=== PATIENT | male | born 1950 | race Caucasian/White ===

== ENCOUNTER 2017-03-25 05:09 | Observation (INO) ==
--- NOTE | 2017-03-25 05:40 | Emergency Department Note ---
Disposition Clinical Impression: Thoracic back pain Qualifiers: Chronicity: acute Back pain laterality: midline Qualified Code(s): M54.6 - Pain in thoracic spine Disposition: Still a Patient Referrals: Geronimo Grimm MD [Primary Care Provider] - Forms: ED Satisfaction Letter Time of Disposition: 05:48 General Adult HPI - General Chief complaint: ED Back Pain/Injury Stated complaint: back pain Time Seen by Provider: 03/25/17 05:25 Source: patient Nursing Notes Reviewed: Yes Vital Signs Reviewed: Yes - History of Present Illness HPI Narrative: 66-year-old male diabetic nonsmoker complains of mid scapular pain. He states he has had this for the past 3 days, is worse when he lies down at night, but it was worse when he woke up this morning which prompted his visit to the emergency department. He describes it as a dull ache and rates it 5 out of 10. He took some [id number] back and body medicine prior to arrival which states it "eased up a little". Other than that nothing makes it better and he does not feel that anything makes it worse. He denies any shortness of breath, or any worsening with exertion. He tells me he has no history of chronic back pain, denies any injury or trauma. He denies any neck, extremity, abdominal pain, recent illness, cough, fever, near syncopal symptoms, nausea, weakness, vision changes. Pain Scale: 6 - Related Data Home Medications Medication Instructions Recorded Confirmed Aspirin Enteric Coated [Aspirin EC] 81 mg PO DAILY 10/19/14 01/11/15 Cholecalciferol (Vitamin D3) 5,000 unit PO BID 10/19/14 01/11/15 [Vitamin D3] Cyanocobalamin/Folic Acid [B-12 1,000 mcg PO DAILY 10/19/14 01/11/15 1,000 Mcg Sub Tablet] Fenofibric Acid [Fibricor] 135 mg PO DAILY 10/19/14 01/11/15 Folic Acid 800 mcg PO DAILY 10/19/14 01/11/15 Insulin Glargine,Hum.rec.anlog 28 unit SQ DAILY 10/19/14 01/11/15 [Lantus Solostar] Lisinopril/Hydrochlorothiazide 1 each PO DAILY 10/19/14 01/11/15 [Zestoretic 20-12.5 mg Tablet] Magnesium Oxide [Magnesium] 400 mg PO QID 10/19/14 01/11/15 Metformin HCl [Fortamet] 1,000 mg PO BID 10/19/14 01/11/15 Potassium Citrate [Urocit-K] 100 meq PO BID 10/19/14 01/11/15 Rosuvastatin [Crestor] 40 mg PO DAILY 10/19/14 01/11/15 Previous Rx's Medication Instructions Recorded Budesonide/Formoterol 160/4.5 1 puff IH BIDR #1 hfa.aer.ad 01/11/15 [Symbicort] GuaiFENesin/Codeine [Robitussin 5 ml PO Q6HR #100 liquid 01/11/15 w/Codeine] Nitrofurantoin (BID) [Macrobid] 100 mg PO BID #14 capsule 01/11/15 Promethazine/Dextromethorphan 5 ml PO Q6H PRN #118 ml 03/11/15 [Promethazine-Dm Syrup] Sulfamethoxazole/Trimeth DS 1 each PO BID #20 tablet 03/11/15 [Bactrim DS] predniSONE [PredniSONE] 10 mg PO BIDWM #20 tablet 03/11/15 Allergies Allergy/AdvReac Type Severity Reaction Status Date / Time No Known Allergies Allergy Verified 10/19/14 10:36 All systems ED: reviewed and negative except as stated. Review of Systems: As Per HPI Constitutional: Denies: fever, chills, weakness Eyes: Denies: vision change ENT ED: Denies: throat pain Cardiovascular: Reports: as per HPI. Denies: palpitations, dyspnea on exertion , orthopnea Respiratory: Denies: cough, dyspnea, wheezes, hemoptysis, stridor, sputum production Gastrointestinal: Denies: abdominal pain, nausea, vomiting Genitourinary: Denies: dysuria Musculoskeletal: Reports: as per HPI. Denies: joint swelling Integumentary: Denies: rash Neurological: Denies: headache, weakness, numbness, paresthesias Endocrine: Denies: fatigue Hematological/Lymphatic: Denies: easy bleeding Allergic/Immunologic: Denies: facial swelling Past Medical History - Past Medical History Medical history: Reports: diabetes, hypertension, other - Social History Smoking Status: Never smoker Smokeless Tobacco Status: No Alcohol use: Reports: none Drug use: Reports: none Physical Exam - General Limitations: no limitations General appearance: alert, in no apparent distress - Head Head exam: normocephalic - Eye Eye exam: Present: EOMI. Absent: conjunctival injection - ENT ENT exam: mucous membranes moist - Neck Neck exam: Present: normal inspection, full ROM. Absent: tenderness - Chest Chest inspection: Present: symmetric chest wall rise - Respiratory Respiratory exam: Present: normal lung sounds bilaterally. Absent: respiratory distress - Cardiovascular Cardiovascular exam: Present: regular rate, normal rhythm - Abdominal Exam Abdominal exam: Present: soft, Non-Tender - Extremities Exam Extremities exam: Present: normal inspection, full ROM, normal capillary refill - Back Exam Back exam: Present: normal inspection, tenderness (mid scapular). Absent: CVA tenderness (R), CVA tenderness (L) - Neurological Exam Neurological exam: Present: alert, oriented X3 - Psychiatric Psychiatric exam: Present: normal affect, normal mood - Skin Skin exam: Present: warm, dry, intact, normal color. Absent: rash, cyanosis, diaphoresis Course Course Narrative: Patient is a 66-year-old male diabetic that he relates to exam room from home by private vehicle with complaint of dull mid scapular pain has been intermittent for the past 3 days, but worse this morning. Patient seen upon his arrival to exam room. He is in no acute distress. Does not look toxic. He appears comfortable. Slightly hypertensive, but patient mentions he has not taken his morning blood pressure medications. Normal distal pulses. Lungs clear to auscultation. Heart regular rhythm, with a rate of 60. EKG sinus bradycardia with no ischemic changes. Aspirin of the history includes diabetes, hypertension. She denies any history of heart disease. Family history of heart disease. Patient declines analgesics. Blood work and chest x-ray ordered. - Reevaluation(s) Reevaluation #1: Due to change, care of this patient will be transferred over to day shift provider Ayala Gordon PA-C. Pt discussed with Ayala. Please see her documentation for details. Time: 05:50 Vital Signs Temperature 97.5 F L 03/25/17 05:09 Pulse Rate 88 03/25/17 05:09 Respiratory Rate 16 03/25/17 05:09 Blood Pressure 163/88 03/25/17 05:09 O2 Sat by Pulse Oximetry 97 02/03/18 05:09 Temperature 97.5 F L 03/25/17 05:09 Pulse Rate 60 03/25/17 05:29 Respiratory Rate 18 03/25/17 05:29 Blood Pressure 126/104 03/25/17 05:29 O2 Sat by Pulse Oximetry 97 03/25/17 05:29 Oxygen Delivery Oxygen Delivery Room Air Medical Decision Making - Lab Data Result diagrams: 03/25/17 05:50 Lab Results 03/25/17 03/25/17 Range/Units 05:50 05:56 WBC 6.4 (4.3-11.1) K/mcL RBC 5.36 (4.19-5.50) M/mcL Hgb 15.2 (12.9-16.9) g/dL Hct 47.2 (37.5-50.1) % MCV 88.1 (83.0-100.0) fL MCH 28.4 (28.0-33.3) pg MCHC 32.2 (31.6-35.5) g/dL RDW 13.9 (11.5-14.5) % Plt Count 272 (140-400) K/mcL MPV 10.5 (9.4-12.4) fL Immature Gran % 0.6 (0-4) % Seg Neutrophils % 49.3 % Lymphocytes % 36.9 % Monocytes % 9.7 % Eosinophils % 1.9 % Basophils % 1.6 % Neutrophils # 3.2 (1.6-8.9) K/mcL Lymphocytes # 2.4 (0.6-4.6) K/mcL Monocytes # 0.6 (0.0-1.3) K/mcL Eosinophils # 0.1 (0.0-0.6) K/mcL Basophils # 0.1 (0.0-0.2) K/mcL Urine Color Yellow (Yellow) Urine Clarity Clear (Clear) Urine pH 6.0 (5.0-8.0) pH Units Ur Specific [place] 1.019 (1.010-1.025) Urine Protein Negative (Neg-Trace) mg/dL Urine Glucose (UA) Normal (Normal) mg/dL Urine Ketones Negative (Negative) mg/dL Urine Blood Negative (Negative) Urine Nitrite Negative (Negative) Urine Bilirubin Negative (Negative) Urine Urobilinogen Normal (Normal) mg/dL Ur Leukocyte Esterase Negative (Negative) Ur Culture Indicated? NO (NO) - EKG Data EKG #1 EKG attestation: Yes I reviewed and interpreted this EKG. EKG shows normal: sinus rhythm Rate: bradycardia Interpretation: no acute changes S.B.A.R. - S.B.A.R. Situation: Demographics Background: Presenting Complaint Assessment: Vital Signs Recommendation: Recommendation based on pending studies, treatments, or consults S.B.A.R. Report Given to: CARITO Martinez S.B.A.RTerence Repor Time: 06:05
[2017-03-25 06:01] LABS: Basophils # 0.1 K/mcL (0.0-0.2); Basophils % 1.6 %; Eosinophils # 0.1 K/mcL (0.0-0.6); Eosinophils % 1.9 %; Hematocrit 47.2 % (37.5-50.1); Hemoglobin 15.2 g/dL (12.9-16.9); Immature Granulocytes % 0.6 % (0-4); Lymphocytes # 2.4 K/mcL (0.6-4.6); Lymphocytes % 36.9 %; Mean Corpuscular HGB Conc 32.2 g/dL (31.6-35.5); Mean Corpuscular Hemoglobin 28.4 pg (28.0-33.3); Mean Corpuscular Volume 88.1 fL (83.0-100.0); Mean Platelet Volume 10.5 fL (9.4-12.4); Monocytes # 0.6 K/mcL (0.0-1.3); Monocytes % 9.7 %; Neutrophils # 3.2 K/mcL (1.6-8.9); Platelet Count 272 K/mcL (140-400); Red Blood Count 5.36 M/mcL (4.19-5.50); Red Cell Distribution Width 13.9 % (11.5-14.5); Segmented Neutrophils % 49.3 %
[2017-03-25 06:10] LABS: Bilirubin,Urine Negative (Negative); Blood,Urine Negative (Negative); Clarity,Urine Clear (Clear); Color,Urine Yellow (Yellow); Glucose,Urine (UA) Normal (Normal); Ketones,Urine Negative (Negative); Leukocyte Esterase,Urine Negative (Negative); Nitrite,Urine Negative (Negative); Protein,Urine Negative (Neg-Trace); Specific Gravity,Urine 1.019 (1.010-1.025); Urobilinogen,Urine Normal (Normal)
[2017-03-25 06:19] LABS: BUN/Creatinine Ratio 20 (6-26); Blood Urea Nitrogen 26 mg/dL (8-23); Calcium 8.9 mg/dL (8.6-10.3); Carbon Dioxide 29 mEq/L (23-29); Chloride 106 mEq/L (98-107); Glucose 107 mg/dL (70-105); Osmolality,Calculated 295 (280-300); Potassium 4.1 mEq/L (3.5-5.1); Sodium 140 mEq/L (136-145); eGFR For African Americans > 60 (> 60); eGFR For Non-African Americans 56 (> 60)
[2017-03-25] MEDS ORDERED: Aspirin 81 MG TAB.CHEW PO ONE (06:44)
--- NOTE | 2017-03-25 06:44 | Emergency Department Note ---
Disposition Clinical Impression: Anginal equivalent Back pain Qualifiers: Back pain location: thoracic back pain Chronicity: acute Disposition: Admitted As Inpatient Condition: Fair Time of Disposition: 07:05 General Adult HPI - General Chief complaint: ED Back Pain/Injury Stated complaint: back pain Time Seen by Provider: 03/25/17 05:25 Source: patient Limitations: no limitations - History of Present Illness Pain Scale: 5 - Related Data Home Medications Medication Instructions Recorded Confirmed Aspirin Enteric Coated [Aspirin EC] 81 mg PO DAILY 10/19/14 01/11/15 Cholecalciferol (Vitamin D3) 5,000 unit PO BID 10/19/14 01/11/15 [Vitamin D3] Cyanocobalamin/Folic Acid [B-12 1,000 mcg PO DAILY 10/19/14 01/11/15 1,000 Mcg Sub Tablet] Fenofibric Acid [Fibricor] 135 mg PO DAILY 10/19/14 01/11/15 Folic Acid 800 mcg PO DAILY 10/19/14 01/11/15 Insulin Glargine,Hum.rec.anlog 28 unit SQ DAILY 10/19/14 01/11/15 [Lantus Solostar] Lisinopril/Hydrochlorothiazide 1 each PO DAILY 10/19/14 01/11/15 [Zestoretic 20-12.5 mg Tablet] Magnesium Oxide [Magnesium] 400 mg PO QID 10/19/14 01/11/15 Metformin HCl [Fortamet] 1,000 mg PO BID 10/19/14 01/11/15 Potassium Citrate [Urocit-K] 100 meq PO BID 10/19/14 01/11/15 Rosuvastatin [Crestor] 40 mg PO DAILY 10/19/14 01/11/15 Previous Rx's Medication Instructions Recorded Budesonide/Formoterol 160/4.5 1 puff IH BIDR #1 hfa.aer.ad 01/11/15 [Symbicort] GuaiFENesin/Codeine [Robitussin 5 ml PO Q6HR #100 liquid 01/11/15 w/Codeine] Nitrofurantoin (BID) [Macrobid] 100 mg PO BID #14 capsule 01/11/15 Promethazine/Dextromethorphan 5 ml PO Q6H PRN #118 ml 03/11/15 [Promethazine-Dm Syrup] Sulfamethoxazole/Trimeth DS 1 each PO BID #20 tablet 03/11/15 [Bactrim DS] predniSONE [PredniSONE] 10 mg PO BIDWM #20 tablet 03/11/15 Allergies Allergy/AdvReac Type Severity Reaction Status Date / Time No Known Allergies Allergy Verified 10/19/14 10:36 Constitutional: Denies: fever, chills, weakness Eyes: Denies: vision change ENT ED: Denies: throat pain Cardiovascular: Reports: as per HPI. Denies: palpitations, dyspnea on exertion , orthopnea Respiratory: Denies: cough, dyspnea, wheezes, hemoptysis, stridor, sputum production Gastrointestinal: Denies: abdominal pain, nausea, vomiting Genitourinary: Denies: dysuria Musculoskeletal: Reports: as per HPI. Denies: joint swelling Integumentary: Denies: rash Neurological: Denies: headache, weakness, numbness, paresthesias Endocrine: Denies: fatigue Hematological/Lymphatic: Denies: easy bleeding Allergic/Immunologic: Denies: facial swelling Past Medical History - Past Medical History Medical history: Reports: diabetes, hypertension, other - Social History Smoking Status: Never smoker Smokeless Tobacco Status: No Alcohol use: Reports: none Drug use: Reports: none Physical Exam - General Limitations: no limitations General appearance: alert, in no apparent distress Course Course Narrative: Patient was originally seen by Garth MADDEN. SEE Garth's note>>>>>>>>>>>>>>>>>>>>>>> >>>> Patient is a 66 old male with a past medical history of hypertension and diabetes that presents the ED with chief complaint pain between shoulder blades with associated nausea and shortness of breath. Patient describes the pain as dull. States it is worse with ambulation. Patient states "I want to make sure it is not my heart, that is what I am concerned about." He denies any chest pain. He denies any fever, abdominal pain, diarrhea, vomiting, diaphoresis, weakness or any other symptoms/complaints. Patient denies ever having a stress or heart cath. Denies any history of aortic or abdominal aneurysm. No hx of DVT or PE EKG with sinus bradycardia, which was reviewed by Dr. Phelan and Garth MADDEN. Labs had also resulted which are within normal limits. Troponin negative. Chest x-ray was also resulted which showed no acute cardiopulmonary abnormalities. Patient denied any pain or nausea medication prior to me arriving to the ED I ordered patient an aspirin at 6:44 AM. When I evaluated patient in the room 6:30 AM patient was resting comfortably and caught. Vital stable. Head normocephalic. Eyes normal inspection. ENT within normal limits. Neck supple, full range of motion, nontender. No signs of meningeal irritation. Heart RRR. Lungs CTAB. No wheezing, stridor, retractions or any signs of respiratory distress/compromise. Abdomen soft, nontender. Normal bowel sounds. Back normal inspection, nontender. Extremities within normal limits. No tibial edema. Neuro no focal neurological deficits noted on exam. Heart score 4, moderate risk Plan to discuss case with Dr. Mae for possible admission for atypical ACS rule out. Hospitalist paged 07:05 AM Discuss[address] case [address] Dr. Barry. he accepted pt no other request at this time. Pt stable to be transferred to the floor. Vital Signs Temperature 97.5 F L 03/25/17 05:09 Pulse Rate 88 03/25/17 05:09 Respiratory Rate 16 03/25/17 05:09 Blood Pressure 163/88 03/25/17 05:09 O2 Sat by Pulse Oximetry 97 03/25/17 05:09 Temperature 97.5 F L 03/25/17 05:09 Pulse Rate 60 03/25/17 06:56 Respiratory Rate 18 03/25/17 06:31 Blood Pressure 133/87 03/25/17 06:56 O2 Sat by Pulse Oximetry 95 03/25/17 06:56 Oxygen Delivery Oxygen Delivery Room Air Medical Decision Making - Medical Records Medical records reviewed: Yes I reviewed the patient's medical records. - Lab Data Lab results reviewed: Yes I reviewed the patient's lab results. Result diagrams: 03/25/17 05:50 03/25/17 05:50 Lab Results 03/25/17 03/25/17 03/25/17 Range/Units 05:50 05:50 05:50 WBC 6.4 (4.3-11.1) K/mcL RBC 5.36 (4.19-5.50) M/mcL Hgb 15.2 (12.9-16.9) g/dL Hct 47.2 (37.5-50.1) % MCV 88.1 (83.0-100.0) fL MCH 28.4 (28.0-33.3) pg MCHC 32.2 (31.6-35.5) g/dL RDW 13.9 (11.5-14.5) % Plt Count 272 (140-400) K/mcL MPV 10.5 (9.4-12.4) fL Immature Gran % 0.6 (0-4) % Seg Neutrophils % 49.3 % Lymphocytes % 36.9 % Monocytes % 9.7 % Eosinophils % 1.9 % Basophils % 1.6 % Neutrophils # 3.2 (1.6-8.9) K/mcL Lymphocytes # 2.4 (0.6-4.6) K/mcL Monocytes # 0.6 (0.0-1.3) K/mcL Eosinophils # 0.1 (0.0-0.6) K/mcL Basophils # 0.1 (0.0-0.2) K/mcL Sodium 140 (136-145) mEq/L Potassium 4.1 (3.5-5.1) mEq/L Chloride 106 (98-107) mEq/L Carbon Dioxide 29 (23-29) mEq/L BUN 26 H (8-23) mg/dL Creatinine 1.29 (0.70-1.30) mg/dL Est GFR ( Amer) > 60 (> 60) Est GFR (Non-Af Amer) 56 L (> 60) BUN/Creatinine Ratio 20 (6-26) Glucose 107 H (70-105) mg/dL Calculated Osmolality 295 (280-300) Lactic Acid (0.5-2.2) mmol/L Calcium 8.9 (8.6-10.3) mg/dL Troponin I < 0.03 (< 0.04) ng/mL Urine Color (Yellow) Urine Clarity (Clear) Urine pH (5.0-8.0) pH Units Ur Specific [place] (1.010-1.025) Urine Protein (Neg-Trace) mg/dL Urine Glucose (UA) (Normal) mg/dL Urine Ketones (Negative) mg/dL Urine Blood (Negative) Urine Nitrite (Negative) Urine Bilirubin (Negative) Urine Urobilinogen (Normal) mg/dL Ur Leukocyte Esterase (Negative) Ur Culture Indicated? (NO) 02/03/18 02/03/18 Range/Units 05:50 05:56 WBC (4.3-11.1) K/mcL RBC (4.19-5.50) M/mcL Hgb (12.9-16.9) g/dL Hct (37.5-50.1) % MCV (83.0-100.0) fL MCH (28.0-33.3) pg MCHC (31.6-35.5) g/dL RDW (11.5-14.5) % Plt Count (140-400) K/mcL MPV (9.4-12.4) fL Immature Gran % (0-4) % Seg Neutrophils % % Lymphocytes % % Monocytes % % Eosinophils % % Basophils % % Neutrophils # (1.6-8.9) K/mcL Lymphocytes # (0.6-4.6) K/mcL Monocytes # (0.0-1.3) K/mcL Eosinophils # (0.0-0.6) K/mcL Basophils # (0.0-0.2) K/mcL Sodium (136-145) mEq/L Potassium (3.5-5.1) mEq/L Chloride (98-107) mEq/L Carbon Dioxide (23-29) mEq/L BUN (8-23) mg/dL Creatinine (0.70-1.30) mg/dL Est GFR ( Amer) (> 60) Est GFR (Non-Af Amer) (> 60) BUN/Creatinine Ratio (6-26) Glucose (70-105) mg/dL Calculated Osmolality (280-300) Lactic Acid 1.7 (0.5-2.2) mmol/L Calcium (8.6-10.3) mg/dL Troponin I (< 0.04) ng/mL Urine Color Yellow (Yellow) Urine Clarity Clear (Clear) Urine pH 6.0 (5.0-8.0) pH Units Ur Specific [place] 1.019 (1.010-1.025) Urine Protein Negative (Neg-Trace) mg/dL Urine Glucose (UA) Normal (Normal) mg/dL Urine Ketones Negative (Negative) mg/dL Urine Blood Negative (Negative) Urine Nitrite Negative (Negative) Urine Bilirubin Negative (Negative) Urine Urobilinogen Normal (Normal) mg/dL Ur Leukocyte Esterase Negative (Negative) Ur Culture Indicated? NO (NO) - Radiology Data Radiology results reviewed: Yes I reviewed the patient's radiology results. Attestation Statement - Attestation Attestation: For this encounter, I have reviewed the DELIVERY PERSON or PA documentation, treatment plan, and medical decision making; and I have had face to face time with this patient. [id number] time provided Labs, ECG reviewed by me. Patient appears in no acute distress on exam
--- NOTE | 2017-03-25 09:10 | Internal Med History&Physical ---
Date of Encounter: 03/25/17 Time of Encounter: 09:07 Assessment and Plan (1) SOB (shortness of breath) Current visit: Yes Status: Acute Exertional shortness of breath and fatigue consult for angina equivalent (2) Diabetes 1.5, managed as type 2 Current visit: Yes Status: Acute Chronic resume home medication and sliding scale (3) HTN (hypertension) Current visit: Yes Status: Chronic Chronic and well controlled Qualifiers: Hypertension type: essential hypertension Qualified Code(s): I10 - Essential (primary) hypertension (4) Anginal equivalent Current visit: Yes Status: Acute Patient with pain in the shoulder blade exertional shortness of breath possible angina equivalent need further evaluation with nuclear stress test and echo Internal Medicine - H&P: HPI Chief complaint: chest pain Admitted From: Emergency Dept Plans for Post Hospital Care: Home History of present illness: Mr. Westbrook is a 66 year old male Patient with history of hypertension, diabetes, high cholesterol, strong family history of CAD both brother has had myocardial infarction older brother has had CABG twice patient presented emergency room with the pain and upper back in between the shoulder blades and he was concerned wanted to make sure it was not his heart has some nausea and some shortness of breath patient and also reports he has been having exertional shortness of breath and also some exertional fatigue. No chest pain per se EKG is unremarkable troponin is normal p atient is being admitted for further Evaluation. Past Med Surg Social Fam HX - Past Medical History Medical history: diabetes, hypertension, other - Social History Smoking Status: Never smoker Smokeless Tobacco Status: No Alcohol use: none Drug use: none Internal Medicine - H&P: Meds Aspirin Enteric Coated [Aspirin EC] 81 mg PO DAILY 10/19/14 [History] Cholecalciferol (Vitamin D3) [Vitamin D3] 5,000 unit PO BID 10/19/14 [History] Cyanocobalamin/Folic Acid [B-12 1,000 Mcg Sub Tablet] 1,000 mcg PO DAILY [History] Fenofibric Acid [Fibricor] 135 mg PO DAILY 10/19/14 [History] Folic Acid 800 mcg PO DAILY 10/19/14 [History] Insulin Glargine,Hum.rec.anlog [Lantus Solostar] 28 unit SQ DAILY 10/19/14 [ History] Lisinopril/Hydrochlorothiazide [Zestoretic 20-12.5 mg Tablet] 1 each PO DAILY [History] Magnesium Oxide [Magnesium] 400 mg PO QID 10/19/14 [History] Metformin HCl [Fortamet] 1,000 mg PO BID 10/19/14 [History] Potassium Citrate [Urocit-K] 100 meq PO BID 10/19/14 [History] Rosuvastatin [Crestor] 40 mg PO DAILY 10/19/14 [History] Budesonide/Formoterol 160/4.5 [Symbicort] 1 puff IH BIDR #1 hfa.aer.ad 01/11/15 [Rx] GuaiFENesin/Codeine [Robitussin w/Codeine] 5 ml PO Q6HR #100 liquid 01/11/15 [Rx ] Nitrofurantoin (BID) [Macrobid] 100 mg PO BID #14 capsule 01/11/15 [Rx] Promethazine/Dextromethorphan [Promethazine-Dm Syrup] 5 ml PO Q6H PRN #118 ml [Rx] Sulfamethoxazole/Trimeth DS [Bactrim DS] 1 each PO BID #20 tablet 03/11/15 [Rx] predniSONE [PredniSONE] 10 mg PO BIDWM #20 tablet 03/11/15 [Rx] 3 Allergy/AdvReac Type Severity Reaction Status Date / Time No Known Allergies Allergy Verified 10/19/14 10:36 All Systems PM: A 10-system review of systems was performed and is negative for pertinent findings except as documented above in the HPI. - Constitutional Constitutional: no chills, no fever(s), no night sweats - EENT Eyes: no change in vision, no discharge, no pain, no photophobia Ears: no ear discharge, no ear pain, no tinnitus Nose, mouth and throat: no dysphagia, no nasal discharge, no neck pain, no sore throat - Cardiovascular Cardiovascular ROS IM: chest pain, dyspnea, dyspnea on exertion - Respiratory Respiratory: dyspnea on exertion - Constitutional Vitals: Temp Pulse Resp BP Pulse Ox 97.5 F L 60 16 129/79 95 03/25/17 05:09 03/25/17 06:56 03/25/17 08:31 03/25/17 08:31 03/25/17 06:56 - Head Head exam: Present: atraumatic, normocephalic - Eye Eye exam: Present: PERRL, conjuntiva pink, sclera anicteric Pupils: Present: PERRL - Respiratory Respiratory exam: Present: CTAB. Absent: accessory muscle use, rales, rhonchi, wheezes - GI/Abdominal GI/Abdominal exam: Present: normal bowel sounds, soft, no peritoneal signs. Absent: distended, tenderness - Extremities Exam Extremities exam: Present: warm, radial pulses palpable and symmetrical. Absent : calf tenderness, cyanotic, pedal edema - Neurological Exam Neurological exam: Present: CN II-XII intact, oriented X3, no focal deficits. Absent: pronater drift, facial droop, speech deficit Internal Med - H&P Results - Labs CBC & Chem 7: 03/25/17 05:50 03/25/17 05:50
[2017-03-25] MEDS ORDERED: *HR* OxyCODONE Immed Rel 5 MG TABLET PO PRN (09:16)
[2017-03-25] MEDS ORDERED: Naloxone 0.4 MG/ML INJ IVP PRN (09:16)
[2017-03-25] MEDS ORDERED: Acetaminophen 325 MG TABLET PO PRN (09:16)
[2017-03-25] MEDS: Magnesium Oxide 400 MG TABLET PO SCH ×3 (15:00→22:04)
[2017-03-25] MEDS: predniSONE 10 MG TABLET PO SCH (16:05)
[2017-03-25] MEDS: Budesonide/Formoterol 160/4.5 MDI IH SCH ×2 (19:37→20:40)
[2017-03-25] MEDS: Cholecalciferol (D-3) 1,000 UNIT TABLET PO SCH (22:04)
[2017-03-26 06:43] VITALS: BP 133/76
[2017-03-26] MEDS: Budesonide/Formoterol 160/4.5 MDI IH SCH (07:26)
[2017-03-26 08:18] LABS: Chol/HDL Ratio 4.1 (0-4.9); Magnesium 2.1 mg/dL (1.6-2.6)
[2017-03-26] MEDS ORDERED: Cyanocobalamin (B-12) 1,000 MCG TABLET PO SCH ×2 (09:00)
[2017-03-26] MEDS ORDERED: Aspirin Enteric Coated 81 MG Tablet PO SCH ×2 (09:00)
[2017-03-26] MEDS ORDERED: Folic Acid 1 MG TABLET PO SCH (09:00)
[2017-03-26] MEDS ORDERED: Fluticasone Propionate Nasal 50 MCG/SPRAY BOTTLE NS SCH (09:00)
[2017-03-26] MEDS ORDERED: Fenofibrate 54 MG TABLET PO SCH (09:00)
[2017-03-26] MEDS ORDERED: Lisinopril-HCTZ 20-12.5mg TABLET PO SCH (09:00)
[2017-03-26] MEDS: predniSONE 10 MG TABLET PO SCH (09:07)
[2017-03-26] MEDS: Cholecalciferol (D-3) 1,000 UNIT TABLET PO SCH (09:18)
[2017-03-26] MEDS: Magnesium Oxide 400 MG TABLET PO SCH (09:18)
--- NOTE | 2017-03-26 10:00 | Discharge Summary ---
Date of Encounter: 03/26/17 Time of Encounter: 09:30 - Discharge Diagnosis (1) Anginal equivalent Priority: Primary Status: Acute Comments: Pt presented to the ED wtih c/o recent exertional dyspnea, fatigue, and new pain between shoulder blades. He denies any n/v, diaphoresis, dizziness, or radiation of pain. Pt with personal medical history of DM, HLD, HTN, and strong family history of CAD. Pt is a non-smoker and denies ETOH or illicit drug use. Portable chest xray was negative, troponins negative x 2. Echo showed pEF with mild LVDD and no significant valvular dysfunction. STress test negative for ischemia or infarct, gated EF 64%, there were concerning ST changes with exercise that resolved 8 minutes into recovery. I discussed the results with cardiology [employer] who recommends that pt follow up with them in the office in 1 month. Pt denies any chest pain or back pain, no n/v, SOB, dizziness. (2) Back pain Priority: Secondary Status: Acute Comments: Plan as above. Qualifiers: Back pain location: thoracic back pain Chronicity: acute Qualified Code(s ): M54.6 - Pain in thoracic spine (3) Diabetes 1.5, managed as type 2 Priority: Secondary Status: Chronic Comments: A1c 7.3%. Continue home medications and accucheck regimen after discharge. (4) SOB (shortness of breath) Priority: Secondary Status: Resolved Comments: Pt denies at this time. States that he has been SOB with exertion recently, but denies SOB at rest, wheezing, or new cough, chills, fever. Lungs are clear throughout. No respiratory distress or wheezing, rales, ronchi. No peripheral edema or recent illness. Likely secondary to angina, pt will follow up with cardiology in 1 month and with PCP in the next 7-10 days. (5) HTN (hypertension) Priority: Secondary Status: Chronic Comments: Chronic. Continue home medications. Qualifiers: Hypertension type: essential hypertension Qualified Code(s): I10 - Essential (primary) hypertension (6) DVT prophylaxis Priority: Secondary Status: Acute Comments: Pt has been ambulatory. - Discharge Medications Home Medications: Aspirin Enteric Coated [Aspirin EC] 81 mg PO DAILY 03/25/17 [History] Cyanocobalamin (Vitamin B-12) [Vitamin B12] 500 mcg PO DAILY 03/25/17 [History] Fenofibrate Nanocrystallized [Tricor] 145 mg PO DAILY 03/25/17 [History] Fluticasone Propionate Nasal [Flonase] 100 mcg NS DAILY 03/25/17 [History] Folic Acid 1 mg PO DAILY 03/25/17 [History] Insulin Glargine,Hum.rec.anlog [Lantus Solostar] 34 unit SQ HS 03/25/17 [History ] Lisinopril-HCTZ 20-12.5 [Prinzide 20-12.5] 1 tab PO DAILY 03/25/17 [History] Rosuvastatin [Crestor] 40 mg PO DAILY 03/25/17 [History] glipiZIDE [Glucotrol] 5 mg PO BID 03/25/17 [History] metFORMIN [Glucophage] 1,000 mg PO BID 03/25/17 [History] Allergies/Adverse Reactions: 3 Allergy/AdvReac Type Severity Reaction Status Date / Time glimepiride AdvReac Gastrointestinal Verified 03/25/17 14:09 Upset Procedures/tests Complete & Pending: Procedures Performed prior 72 hours Category Date Time Status NM rachana perf SPECT multi [NM] Routine Exams 03/25/17 09:20 Taken EV echocardiogram Routine Y 03/25/17 09:20 Completed SP exercise nuclear stress Routine Y 03/25/17 09:19 Ordered Date of admission: 03/25/17 08:29 Primary care physician: Geronimo Grimm MD Discharging clinician: Keiry Damico Anticipated date of discharge: 03/26/17 - Patient Status Disposition: Home, Self-Care Condition: Good Functional capacity at discharge: independent ambulation Overall status at discharge: patient is back to baseline - Discharge Instructions Follow Up With: Geronimo Grimm MD [Primary Care Provider] - Additional Instructions: Please follow up with PCP in the next 7-10 days for a recheck. Cardiology will contact you for a follow up visit with them in the office in 1 month. Return to the ER as needed for any other problems or concerns, of if your symptoms return or worsen. Return to your normal diet as tolerated. Return to your normal activites as tolerated, try to avoid over exerting yourself. Take your medications as directed. - Diet and Activity Activity: increase activity as tolerated Diet: advance to your usual diet, low fat, low cholesterol Hospital course: Mr. Westbrook is a 66 year old male with PMH of HTN, DM who presented to the ED for pain between his shoulder blades, CUETO, and increased fatigue with exertion over the last few weeks. Troponins were negative x 2, chest xray is negative, echo with LVEF 65%, mild LVDD, no significant valvular dysfunction. Stress test negative for ischemia or infarct, there was some ST depression in the inferior and lateral leads and 1mm ST elevation in aVR only. ECG returned to baseline 8 min into recovery. Pt will follow up in 1 month with cardiology for continued evaluation and possible LHC. Pt denies chst pain, pressure, n/v, diaphoresis, or back pain this a.m. and states that he has returned to baseline. Pt is stable and appropriate for discharge. - Time Spent with Patient Total time spent providing and/or coordinating discharge services: Less than 30 minutes - Constitutional Vitals: Temp Pulse Resp BP Pulse Ox 97.8 F 57 16 133/76 95 03/26/17 06:42 03/26/17 06:42 03/26/17 06:42 03/26/17 06:42 03/26/17 06:42 General appearance: Present: cooperative, A&O X 3, pleasant, answers questions appropriately - Head Head exam: Present: atraumatic, normal inspection, normocephalic - Eye Eye exam: Present: normal appearance, conjuntiva pink, sclera anicteric - Neck Neck exam general surgery: Present: supple, trachea midline. Absent: lymphadenopathy, tenderness - Respiratory Respiratory exam: Present: CTAB. Absent: accessory muscle use, rales, respiratory distress, rhonchi, wheezes - Cardiovascular Cardiovascular exam: Present: RRR, +S1, +S2. Absent: diastolic murmur, gallop, rubs, systolic murmur - GI/Abdominal GI/Abdominal exam: Present: normal bowel sounds, soft. Absent: distended, hepatomegaly, tenderness - Extremities Exam Extremities exam: Present: normal capillary refill, warm, radial pulses palpable and symmetrical. Absent: calf tenderness, cyanotic, pedal edema, tenderness - Neurological Exam Neurological exam: Present: alert, oriented X3, no focal deficits. Absent: facial droop, speech deficit - Skin Skin exam: Present: dry, intact, normal color, warm. Absent: rash
--- NOTE | 2017-03-28 19:18 | Electrocardiograph Report ---
[place] [id number] Test Date: 2017-03-25 Pat Name: Hi Westbrook Department: 102 Room: [facility] Gender: M Costume Cutter: Araseli : 1950 Requested By: Allen Armas Order Number: [id number] Reading MD: Jay Tiwari MD Measurements Intervals [place] Rate: 56 P: 34 WA: 138 QRS: 4 QRSD: 94 T: 12 QT: 406 QTc: 396 Interpretive Statements SINUS BRADYCARDIA Electronically Signed On 03-28-2017 19:16:24 EST by Jay Tiwari MD
== END 2017-03-26 12:45 | disposition home or self-care (01) ==
LOC: 3BNU 05:09 → EMEROO 05:09 → 3BNU 08:35
PROVIDERS: ADMIT Internal Medicine Cardiovascular Disease; ATTEND Registered Nurse